=== PATIENT | female | born 2000 | race Caucasian/White ===

== ENCOUNTER 2020-02-08 14:58 | Emergency (ER) | payer SELFPAY ==
[~2020-02-08] VITALS: Ht 172.7 cm; Wt 111.0 kg
[2020-02-08 15:02] VITALS: BP 124/94
[2020-02-08] MEDS ORDERED: ONDANSETRON PF 4 MG/2 ML VIAL. ONE (15:28)
[2020-02-08] MEDS: ONDANSETRON PF 4 MG/2 ML VIAL. IVP ONE (15:30)
[2020-02-08] MEDS: IV NORMAL SALINE 1,000ML 1,000 ML IV ONE (15:30)
--- NOTE | 2020-02-08 15:49 | PHYS DOC ---
Past History Past Medical History: GERD Past Surgical History: Cholecystectomy, Tonsillectomy Alcohol Use: None Adult General Chief Complaint Chief Complaint: NAUSEA/VOMITING/DIARRHEA HPI HPI 19-year-old female presents with concern about COVID 19 exposure. 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 The patient began to have symptoms 1 week ago. She has had nausea, one episode of vomiting mild body aches, dizziness and mild shortness of breath. She has not really had a cough. She has not measured a fever at home. He did not call her primary care physician. She did not call the Department of Health. Review of Systems Review of Systems Constitutional: Denies fever or chills [] Eyes: Denies change in visual acuity, redness, or eye pain [] HENT: Denies nasal congestion or sore throat [] Respiratory: Mild shortness of breath [] Cardiovascular: No additional information not addressed in HPI [] GI: Denies abdominal pain, nausea, vomiting, bloody stools or diarrhea [] : Denies dysuria or hematuria [] Musculoskeletal: Denies back pain or joint pain [] Integument: Denies rash or skin lesions [] Neurologic: Denies headache, focal weakness or sensory changes [] Endocrine: Denies polyuria or polydipsia [] All other systems were reviewed and found to be within normal limits, except as documented in this note. Current Medications Current Medications Current Medications Medications (Trade) Dose Ordered Sig/Jasvir Start Time Stop Time Status Last Admin Dose Admin Ondansetron HCl (Zofran) 4 mg STK-MED ONCE 02/08/20 15:28 02/08/20 15:28 DC Sodium Chloride 1,000 ml @ 1,000 mls/hr 1X ONCE 02/08/20 15:30 02/08/20 16:29 02/08/20 15:30 1,000 MLS/HR Allergies Allergies Allergies Coded Allergies Type Severity Reaction Last Updated Verified strawberry Allergy Unknown 02/08/20 Yes Physical Exam Physical Exam Constitutional: Well developed, morbidly obese, well nourished, no acute distress, non-toxic appearance. [] HENT: Normocephalic, atraumatic, bilateral external ears normal, oropharynx moist, no oral exudates, nose normal. [] Eyes: PERRLA, EOMI, conjunctiva normal, no discharge. [] Neck: Normal range of motion, no tenderness, supple, no stridor. [] Cardiovascular: Heart rate regular rhythm, no murmur [] Lungs & Thorax: Bilateral breath sounds clear to auscultation [] Abdomen: Bowel sounds normal, soft, no tenderness, no masses, no pulsatile masses. [] Skin: Warm, dry, no erythema, no rash. [] Back: No tenderness, no CVA tenderness. [] Extremities: No tenderness, no cyanosis, no clubbing, ROM intact, no edema. [] Neurologic: Alert and oriented X 3, normal motor function, normal sensory function, no focal deficits noted. [] Psychologic: Affect normal, judgement normal, mood normal. [] Current Patient Data Vital Signs Vital Signs Date Time Temp Pulse Resp B/P (MAP) Pulse Ox O2 Delivery O2 Flow Rate FiO2 02/08/20 15:02 98.4 82 16 124/94 (104) 98 Room Air EKG EKG [] Radiology/Procedures Radiology/Procedures [] Impressions: Examination: CHEST AP ONLY History: Chest pain, medeiros virus exposure Comparison: 11/21/2017 two-view chest x-ray exam. Findings: AP portable upright frontal view of the chest was obtained. The cardiomediastinal silhouette is normal. Lungs are clear. There is no pneumothorax. No pleural effusion is appreciated. No acute bone abnormality. IMPRESSION: No acute cardiopulmonary process. Electronically signed by: Vic Reynolds MD (02/08/2020 4:12 PM) [id number] DICTATED AND SIGNED BY: VIC REYNOLDS MD DATE: 02/08/20 1612 CC: MELVIN LOZA DO; PCP,NO ~ Course & Med Decision Making Course & Med Decision Making Pertinent Labs and Imaging studies reviewed. (See chart for details) The patient's labs are unremarkable. The patient does have risk factors for known COVID 19 exposure. She does not meet admission criteria therefore she does not meet criteria to be tested at this time. The patient can go to a drive- through testing facility if she chooses. She should be quarantined and I have advised her of this. She will return to the emergency room if her condition worsens. She is stable for discharge at this time. [] Dragon Disclaimer Dragon Disclaimer This electronic medical record was generated, in whole or in part, using a voice recognition dictation system. Departure Departure: Impression: Primary Impression: COVID-19 Disposition: 01 HOME, SELF-CARE Condition: STABLE Referrals: PCPGENNY (PCP) Patient Instructions: Viral Syndrome Additional Instructions: You meet criteria for quarantine. The Department of Health does not require you to be tested at this time. You should stay in quarantine until your symptoms have resolved for at least 3 days and were all of the members of her household jessica waterman had no symptoms for at least 3 days. If your condition worsens and your breathing becomes more difficult, you should call the emergency room and possibly return to the emergency room for admission. MELVIN LOZA DO Feb 08, 2020 15:48
[2020-02-08 15:52] LABS: CALCIUM 9.2 mg/dL (8.5-10.1); CREATININE 0.8 mg/dL (0.6-1.0); GFR 90.5; POTASSIUM 3.8 mmol/L (3.5-5.1)
[2020-02-08 15:56] LABS: PREG TEST PT QUAL NEGATIVE (NEG)
[2020-02-08 15:57] LABS: BASO # 0.1 x10^3/uL (0.0-0.2); BASO % 2 % (0-3); EOS # 0.2 x10^3/uL (0.0-0.7); EOS % 3 % (0-3); HEMATOCRIT 42.8 % (36.0-47.0); HEMOGLOBIN 14.3 g/dL (12.0-15.5); LYMPH # 1.7 x10^3/uL (1.0-4.8); LYMPH % 26 % (24-48); MEAN CORPUSCULAR HEMOGLOBIN 29 pg (25-35); MEAN CORPUSCULAR HGB CONC 33 g/dL (31-37); MEAN CORPUSCULAR VOLUME 86 fL (79-100); MONO # 0.4 x10^3/uL (0.0-1.1); MONO % 5 % (0-9); NEUT # 4.2 x10^3uL (1.8-7.7); NEUT % 64 % (31-73); PLATELET COUNT 225 x10^3/uL (140-400); RED BLOOD COUNT 4.96 x10^6/uL (3.50-5.40); RED CELL DISTRIBUTION WIDTH 12.7 % (11.5-14.5); WHITE BLOOD COUNT 6.7 x10^3/uL (4.0-11.0)
[2020-02-08 15:58] LABS: ALBUMIN 3.8 g/dL (3.4-5.0); ALBUMIN/GLOBULIN RATIO 1.1 (1.0-1.7); TOTAL BILIRUBIN 0.3 mg/dL (0.2-1.0); TOTAL PROTEIN 7.3 g/dL (6.4-8.2)
[2020-02-08 16:05] LABS: INFLUENZA A PATIENT NEGATIVE (NEGATIVE); INFLUENZA B PATIENT NEGATIVE (NEGATIVE)
--- NOTE | 2020-02-08 16:15 | RAD ---
Examination: CHEST AP ONLY History: Chest pain, medeiros virus exposure Comparison: 11/21/2017 two-view chest x-ray exam. Findings: AP portable upright frontal view of the chest was obtained. The cardiomediastinal silhouette is normal. Lungs are clear. There is no pneumothorax. No pleural effusion is appreciated. No acute bone abnormality. IMPRESSION: No acute cardiopulmonary process. Electronically signed by: Vic Saez MD (02/08/2020 4:12 PM) [id number]
[2020-02-08 17:03] LABS: BILIRUBIN,URINE NEG (NEG); CLARITY,URINE HAZY; COLOR,URINE YELLOW; GLUCOSE,URINE NEG (NEG)
[2020-02-08 17:04] LABS: BACTERIA,URINE FEW /HPF (0-FEW); NITRITE,URINE NEG (NEG); SQUAMOUS EPITHELIAL CELL,UR MOD /LPF; UROBILINOGEN,URINE 0.2 mg/dL (0.2 mg/dL); WBC,URINE OCC /HPF (0-4)
[2020-02-08 17:05] LABS: HYALINE CASTS, URINE OCC /HPF
== END 2020-02-08 17:07 | disposition home or self-care (01) ==
LOC: ER 14:58
DX: J98.8 Other specified respiratory disorders (principal); B97.29 Other coronavirus as the cause of diseases classified elsewhere; R11.2 Nausea with vomiting, unspecified; E66.01 Morbid (severe) obesity due to excess calories; K21.9 Gastro-esophageal reflux disease without esophagitis; Z68.37 Body mass index [BMI] 37.0-37.9, adult; Z91.018 Allergy to other foods
CPT/HCPCS: 36415; 71045; 80053; 81001; 81025; 84703; 85025; 87070; 87804; 87880; 96361; 96374; 99284; J2405; J7030

== ENCOUNTER 2020-09-28 19:29 | Emergency (ER) | payer SELFPAY ==
[~2020-09-28] VITALS: Ht 160 cm; Wt 117.8 kg
[2020-09-28] MEDS ORDERED: MORPHINE SULFATE 4 MG/ML DISP.SYRIN. IV ONE (20:00)
[2020-09-28] MEDS ORDERED: IOHEXOL 300 MG/ML 75 ML VIAL. IV ONE (20:00)
[2020-09-28] MEDS ORDERED: IV NORMAL SALINE 1,000ML 1,000 ML IV ONE (20:00)
[2020-09-28] MEDS ORDERED: ONDANSETRON PF 4 MG/2 ML VIAL. IVP ONE (20:00)
--- NOTE | 2020-09-28 20:04 | PHYS DOC ---
Past History Past Medical History: GERD Past Surgical History: Cholecystectomy, Tonsillectomy Alcohol Use: None General Adult EDM: Chief Complaint: ABDOMINAL PAIN HPI: HPI: 20-year-old female presents with lower abdominal pain. Patient was about 3 hours ago when she started to have lower abdominal pain. It started out at a moderate level and has continued to increase for the last 3 hours. He was described as a sharp stabbing sensation that is 8 out of 10. She had to go home from work and her place of employment advised ER evaluation. Patient denies any falls or trauma. She states that there is a possibility she could be . She has never had anything like this before. She was feeling normal prior to this episode. Denies fever or chills. Review of Systems: Review of Systems: Constitutional: Denies fever or chills Eyes: Denies change in visual acuity HENT: Denies nasal congestion or sore throat Respiratory: Denies cough or shortness of breath Cardiovascular: Denies chest pain or edema GI: Lower abdominal pain. Denies nausea, vomiting, bloody stools or diarrhea : Denies dysuria Musculoskeletal: Denies back pain or joint pain Integument: Denies rash Neurologic: Denies headache, focal weakness or sensory changes Endocrine: Denies polyuria or polydipsia Lymphatic: Denies swollen glands Psychiatric: Denies depression or anxiety Allergies: Allergies: Allergies Coded Allergies Type Severity Reaction Last Updated Verified strawberry Allergy Unknown 02/08/20 Yes Physical Exam: PE: Constitutional: Well developed, well nourished, obese, mild acute distress, non- toxic appearance. [] HENT: Normocephalic, atraumatic, bilateral external ears normal, oropharynx moist, no oral exudates, nose normal. [] Eyes: PERRLA, EOMI, conjunctiva normal, no discharge. [] Neck: Normal range of motion, no tenderness, supple, no stridor. [] Cardiovascular: Heart rate regular rhythm, no murmur [] Lungs & Thorax: Bilateral breath sounds clear to auscultation [] Abdomen: Bowel sounds normal, soft, suprapubic tenderness, no masses, no pulsatile masses. [] Skin: Warm, dry, no erythema, no rash. [] Back: No tenderness, no CVA tenderness. [] Extremities: No tenderness, no cyanosis, no clubbing, ROM intact, no edema. [] Neurologic: Alert and oriented X 3, normal motor function, normal sensory function, no focal deficits noted. [] Psychologic: Affect normal, judgement normal, mood normal. [] EKG: EKG: [] Radiology/Procedures: Radiology/Procedures: [] Impressions: Exam: CT abdomen/pelvis with intravenous contrast Indication: Suprapubic pain 06/23 Comparison: None Technique: Helical CT imaging performed of the abdomen and pelvis after administration of 70 mL Omnipaque 300 intravenous contrast. Sagittal and coronal reformats were obtained. One or more of the following individualized dose reduction techniques were utilized for this examination: 1. Automated exposure control 2. Adjustment of the mA and/or kV according to patient size 3. Use of iterative reconstruction technique. Findings: Inherently limited evaluation without intravenous contrast. Lower chest: The lung bases are clear and heart is normal in size. Liver: Normal. Gallbladder/Biliary Tree: The gallbladder surgically absent. Bile ducts are normal. Pancreas: Normal. Spleen: Normal. Adrenal Glands: Normal. Kidneys/Ureters/Bladder: Kidneys are normal in size and enhance symmetrically. There is a 2 and a calculus in the mid left kidney. No hydronephrosis. Ureters and bladder are normal. Reproductive Organs: Uterus is anteverted. Ovaries are normal in appearance for age. Stomach, small bowel, and colon: Stomach, small bowel, and colon are unremarkable. Appendix is not definitively visualized. Vasculature: Abdominal aorta and inferior vena cava are normal. Lymph Nodes: No lymphadenopathy. Peritoneum and retroperitoneum: No free fluid or free air. Bones: No acute osseous abnormality. Impression: 1. Left nephrolithiasis. No hydronephrosis. 2. Post cholecystectomy. Electronically signed by: Cadence Mann MD (09/28/2020 8:57 PM) [id number] DICTATED AND SIGNED BY: CADENCE MANN MD DATE: 09/28/202056 CC: MELVIN LOZA DO; PCP,NO ~ Exam: Ultrasound pelvis Indication: Lower abdominal pain, sudden onset, rule out torsion Technique: Real-time grayscale and color Doppler images of the pelvis were obtained by the department project estimator. Comparisons: CT same day FINDINGS: Uterus measures 8.4 x 4.6 x 3.6 cm. Endometrium is 6 cm in thickness. Right ovary measures 2.3 x 2.3 x 1.4 cm. Left ovary measures 2.3 x 1.9 x 1.8 cm. Vascular flow identified within the ovaries bilaterally. No free fluid. IMPRESSION: Normal sonographic appearance of the uterus and ovaries. No evidence for ovarian torsion. Electronically signed by: Aleja Noyola MD (09/28/2020 10:16 PM) [id number] DICTATED AND SIGNED BY: ALEJA NOYOLA MD DATE: 09/28/20 2216 CC: MELVIN LOZA DO; PCP,NO ~ Heart Score: Risk Factors: Risk Factors: DM, Current or recent (<one month) smoker, HTN, HLP, family history of CAD, obesity. Risk Scores: Score 0 - 3: 2.5% MACE over next 6 weeks - Discharge Home Score 4 - 6: 20.3% MACE over next 6 weeks - Admit for Clinical Observation Score 7 - 10: 72.7% MACE over next 6 weeks - Early Invasive Strategies Course & Med Decision Making: Course & Med Decision Making Pertinent Labs and Imaging studies reviewed. (See chart for details) The patient's CT and pelvic ultrasound are negative for significant acute findings. See official reads for more details. Labs are unremarkable except for elevated creatinine 1.4. Patient has gotten fluids. Urinalysis is significant for blood but no infection. Patient's pain is improved after dose of morphine. She is stable for discharge at this time. [] Dragon Disclaimer: Dragon Disclaimer: This electronic medical record was generated, in whole or in part, using a voice recognition dictation system. Departure Departure: Impression: Primary Impression: Abdominal pain, lower Disposition: 01 DC HOME SELF CARE/HOMELESS Condition: STABLE Referrals: PCP,NO (PCP) Patient Instructions: Abdominal Pain, Women MELVIN LOZA DO Sep 28, 2020 20:04
[2020-09-28] MEDS ORDERED: CONTRAST GIVEN. MC PRN (20:15)
[2020-09-28 20:25] LABS: BASO # 0.2 x10^3/uL (0.0-0.2); BASO % 2 % (0-3); EOS # 0.1 x10^3/uL (0.0-0.7); EOS % 1 % (0-3); HEMATOCRIT 40.9 % (36.0-47.0); HEMOGLOBIN 13.5 g/dL (12.0-15.5); LYMPH # 2.4 x10^3/uL (1.0-4.8); LYMPH % 24 % (24-48); MEAN CORPUSCULAR HEMOGLOBIN 29 pg (25-35); MEAN CORPUSCULAR HGB CONC 33 g/dL (31-37); MEAN CORPUSCULAR VOLUME 88 fL (79-100); MONO # 0.5 x10^3/uL (0.0-1.1); MONO % 5 % (0-9); NEUT % 69 % (31-73); PLATELET COUNT 244 x10^3/uL (140-400); RED BLOOD COUNT 4.65 x10^6/uL (3.50-5.40); RED CELL DISTRIBUTION WIDTH 13.1 % (11.5-14.5); WHITE BLOOD COUNT 10.2 x10^3/uL (4.0-11.0)
[2020-09-28 20:27] LABS: CALCIUM 9.2 mg/dL (8.5-10.1); CREATININE 1.4 mg/dL (0.6-1.0); POTASSIUM 3.6 mmol/L (3.5-5.1)
[2020-09-28 20:33] LABS: ALBUMIN 3.8 g/dL (3.4-5.0); ALBUMIN/GLOBULIN RATIO 1.1 (1.0-1.7); TOTAL BILIRUBIN 0.2 mg/dL (0.2-1.0); TOTAL PROTEIN 7.3 g/dL (6.4-8.2)
[2020-09-28 20:38] LABS: BILIRUBIN,URINE NEG (NEG); CLARITY,URINE HAZY; COLOR,URINE RED; GLUCOSE,URINE NEG (NEG); NITRITE,URINE NEG (NEG); RBC,URINE TNTC /HPF (0-2); UROBILINOGEN,URINE 0.2 mg/dL (0.2 mg/dL)
[2020-09-28 20:39] LABS: BACTERIA,URINE 0 /HPF (0-FEW); WBC,URINE 0 /HPF (0-4)
--- NOTE | 2020-09-28 21:00 | RAD ---
Exam: CT abdomen/pelvis with intravenous contrast Indication: Suprapubic pain 06/23 Comparison: None Technique: Helical CT imaging performed of the abdomen and pelvis after administration of 70 mL Omnipaque 300 intravenous contrast. Sagittal and coronal reformats were obtained. One or more of the following individualized dose reduction techniques were utilized for this examination: 1. Automated exposure control 2. Adjustment of the mA and/or kV according to patient size 3. Use of iterative reconstruction technique. Findings: Inherently limited evaluation without intravenous contrast. Lower chest: The lung bases are clear and heart is normal in size. Liver: Normal. Gallbladder/Biliary Tree: The gallbladder surgically absent. Bile ducts are normal. Pancreas: Normal. Spleen: Normal. Adrenal Glands: Normal. Kidneys/Ureters/Bladder: Kidneys are normal in size and enhance symmetrically. There is a 2 and a calculus in the mid left kidney. No hydronephrosis. Ureters and bladder are normal. Reproductive Organs: Uterus is anteverted. Ovaries are normal in appearance for age. Stomach, small bowel, and colon: Stomach, small bowel, and colon are unremarkable. Appendix is not definitively visualized. Vasculature: Abdominal aorta and inferior vena cava are normal. Lymph Nodes: No lymphadenopathy. Peritoneum and retroperitoneum: No free fluid or free air. Bones: No acute osseous abnormality. Impression: 1. Left nephrolithiasis. No hydronephrosis. 2. Post cholecystectomy. Electronically signed by: Cadence Mann MD (09/28/2020 8:57 PM) [id number]
[2020-09-28 22:15] VITALS: BP 133/61
--- NOTE | 2020-09-28 22:19 | RAD ---
Exam: Ultrasound pelvis Indication: Lower abdominal pain, sudden onset, rule out torsion Technique: Real-time grayscale and color Doppler images of the pelvis were obtained by the department mc kay machine operator. Comparisons: CT same day FINDINGS: Uterus measures 8.4 x 4.6 x 3.6 cm. Endometrium is 6 cm in thickness. Right ovary measures 2.3 x 2.3 x 1.4 cm. Left ovary measures 2.3 x 1.9 x 1.8 cm. Vascular flow identified within the ovaries bilaterally. No free fluid. IMPRESSION: Normal sonographic appearance of the uterus and ovaries. No evidence for ovarian torsion. Electronically signed by: Aleja Rowland MD (09/28/2020 10:16 PM) [id number]
== END 2020-09-28 22:40 | disposition home or self-care (01) ==
LOC: ER 19:29
DX: R10.30 Lower abdominal pain, unspecified (principal); K21.9 Gastro-esophageal reflux disease without esophagitis; Z90.49 Acquired absence of other specified parts of digestive tract; Z90.89 Acquired absence of other organs; Z91.018 Allergy to other foods
CPT/HCPCS: 36415; 74177; 76830; 80053; 81001; 81025; 85025; 96361; 96374; 96375; 99285; J2270; J2405; J7030; Q9967

== ENCOUNTER 2020-10-03 16:56 | Emergency (ER) | payer OTHER ==
[~2020-10-03] VITALS: Ht 160 cm; Wt 117.8 kg
[2020-10-03 17:16] VITALS: BP 139/85
[2020-10-03] MEDS ORDERED: ONDANSETRON ODT 4 MG TAB.RAPDIS PO ONE (18:00)
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
[2020-10-03] MEDS ORDERED: NAPR-514 PO (18:27)
[2020-10-03] MEDS ORDERED: CYCL-331 PO (18:27)
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
[2020-10-03 18:44] LABS: BACTERIA,URINE FEW /HPF (0-FEW); BILIRUBIN,URINE NEG (NEG); CLARITY,URINE CLEAR; COLOR,URINE YELLOW; GLUCOSE,URINE NEG (NEG); NITRITE,URINE NEG (NEG); UROBILINOGEN,URINE 0.2 mg/dL (0.2 mg/dL)
[2020-10-03 18:45] LABS: SQUAMOUS EPITHELIAL CELL,UR MANY /LPF
== END 2020-10-03 18:51 | disposition home or self-care (01) ==
LOC: ER 16:56
DX: S29.011A Strain of muscle and tendon of front wall of thorax, initial encounter (principal); S10.93XA Contusion of unspecified part of neck, initial encounter; R07.81 Pleurodynia; J45.909 Unspecified asthma, uncomplicated; K21.9 Gastro-esophageal reflux disease without esophagitis; Z91.018 Allergy to other foods; V40.6XXA Car passenger injured in collision with pedestrian or animal in traffic accident, initial encounter; Y93.89 Activity, other specified; Y92.488 Other paved roadways as the place of occurrence of the external cause; Y99.8 Other external cause status
CPT/HCPCS: 71101; 81001; 81025; 87086; 99284; Q0162

== ENCOUNTER 2021-04-16 19:12 | Emergency (ER) | payer OTHER ==
[~2021-04-16] VITALS: Ht 160 cm; Wt 111.4 kg
[~2021-04-16 19:12] MED LIST: CYCL-331 PO; NAPR-514 PO
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
[2021-04-16 20:42] LABS: BILIRUBIN,URINE SMALL (NEG); CLARITY,URINE CLEAR; COLOR,URINE YELLOW; GLUCOSE,URINE NEG (NEG); NITRITE,URINE NEG (NEG); UROBILINOGEN,URINE 0.2 mg/dL (0.2 mg/dL)
[2021-04-16 20:43] LABS: BARBITURATES NEG (NEG); BENZODIAZEPINES NEG (NEG); CANNABINOIDS NEG (NEG); COCAINE NEG (NEG); METHADONE NEG (NEG); OPIATES NEG (NEG); PHENCYCLIDINE NEG (NEG)
[2021-04-16 20:45] LABS: BACTERIA,URINE 0 /HPF (0-FEW); RBC,URINE 0 /HPF (0-2); SQUAMOUS EPITHELIAL CELL,UR FEW /LPF; WBC,URINE 0 /HPF (0-4)
[2021-04-16 20:47] LABS: AMPHETAMINE/METHAMPHETAMINE NEG (NEG)
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
[2021-04-16] MEDS: KETOROLAC 60 MG/2 ML VIAL. IM ONE (22:39)
[2021-04-16 22:50] VITALS: BP 124/69
== END 2021-04-16 22:57 | disposition home or self-care (01) ==
LOC: ER 19:12
DX: S00.83XA Contusion of other part of head, initial encounter (principal); S80.02XA Contusion of left knee, initial encounter; J45.909 Unspecified asthma, uncomplicated; K21.9 Gastro-esophageal reflux disease without esophagitis; Z90.49 Acquired absence of other specified parts of digestive tract; V43.52XA Car driver injured in collision with other type car in traffic accident, initial encounter; Y93.89 Activity, other specified; Y92.488 Other paved roadways as the place of occurrence of the external cause; Y99.8 Other external cause status
CPT/HCPCS: 36415; 70450; 72125; 73564; 80307; 81001; 81025; 96372; 99285; J1885